=== PATIENT | female | born 1985 | race Caucasian/White ===

== ENCOUNTER 2018-09-03 16:06 | Emergency (ER) | payer BC, OTHER ==
--- NOTE | 2018-09-03 16:41 | ED ---
Lower Extremity - HPI Summary HPI Summary: This patient is a 33 year old F presenting to [facility] with a chief complaint of worsening right knee pain and edema since 4 days ago. The patient rates the pain 6/10 in severity. Symptoms aggravated by movement of the knee. Patient reports discomfort with movement. Patient denies fever. The patient states that she has never been bitten by a tick. Leti cleans buildings, lives in [place]. - History of Current Complaint Chief Complaint: EDExtremityLower Stated Complaint: RIGHT KNEE PAIN Time Seen by Provider: 09/03/18 16:30 Hx Obtained From: Patient Onset/Duration: Days Severity Currently: Moderate Pain Intensity: 6 Pain Scale Used: 0-10 Numeric Timing: Constant Location: Is Discrete @ - right knee Associated Signs And Symptoms: Positive: Swelling. Negative: Fever Aggravating Factor(s): Ambulation - Allergies/Home Medications Allergies/Adverse Reactions: Allergies Allergy/AdvReac Type Severity Reaction Status Date / Time No Known Allergies Allergy Verified 09/03/18 16:13 Home Medications: Home Medications NK [No Home Medications Reported] 09/03/18 [History Confirmed 09/03/18] PMH/Surg Hx/FS Hx/Imm Hx History: Denies: Hx Dialysis Sensory History: Denies: Hx Deafness Infectious Disease History: No Infectious Disease History: Denies: Traveled Outside the [place] in Last 30 Days - Family History Known Family History: Positive: Non-Contributory - Social History Alcohol Use: None Substance Use Type: Reports: None Smoking Status (MU): Heavy Every Day Tobacco Smoker Type: Cigarettes Amount Used/How Often: 5cig/day Have You Smoked in the Last Year: Yes Review of Systems Negative: Fever Positive: discharge Positive: Decreased ROM - knee, Edema - right knee All Other Systems Reviewed And Are Negative: Yes Physical Exam - Summary Physical Exam Summary: Appearance: Well-appearing, Well-nourished, lying in bed comfortable Skin: Warm, dry, no obvious rash Eyes: sclera anicteric, no conjunctival pallor ENT: mucous membranes moist Neck: deferred Respiratory: No signs of respiratory distress Cardiovascular: Appears well perfused, pulses are nml Abdomen: deferred Musculoskeletal: Right knee has a large effusion without wetness, minimal pain. Neurological: Awake and alert, mentation is normal, speech is fluent and appropriate Psychiatric: affect is normal, does not appear anxious or depressed Triage Information Reviewed: Yes Vital Signs On Initial Exam: Initial Vitals Temp Pulse Resp BP Pulse Ox 97.5 F 84 16 130/82 100 09/03/18 16:10 09/03/18 16:10 09/03/18 16:10 09/03/18 16:10 09/03/18 16:10 Vital Signs Reviewed: Yes Diagnostics - Vital Signs Vital Signs Temp Pulse Resp BP Pulse Ox 09/03/18 16:10 97.5 F 84 16 130/82 100 - Laboratory Result Diagrams: 09/03/18 17:03 09/03/18 17:03 Lab Statement: Any lab studies that have been ordered have been reviewed, and results considered in the medical decision making process. - Radiology Knee Radiology Interpretation Completed By: Radiologist Summary of Radiographic Findings: JOINT EFFUSION. NO ACUTE OSSEOUS INJURY. IF SYMPTOMS PERSIST, RECOMMEND REPEAT IMAGING. ED physician has reviewed this report Lower Extremity Course/Dx - Course Course Of Treatment: This patient is a 33 year old F presenting to [facility] with a chief complaint of worsening right knee pain and edema since 4 days ago. The patient rates the pain 6/10 in severity. Symptoms aggravated by movement of the knee. Patient reports discomfort with movement. Patient denies fever. Knee x ray reveals, per radiologist, JOINT EFFUSION. NO ACUTE OSSEOUS INJURY. IF SYMPTOMS PERSIST, RECOMMEND REPEAT IMAGING. ED physician has reviewed this radiology report. Test results with no significant abnormalities. Patient will be discharged with follow up from Dr. Durbin. She should receive the results of her Lyme disease test in a few days. The patient is agreeable with this plan. - Diagnoses Provider Diagnoses: Swelling of knee joint, Arthritis of right knee Discharge - Sign-Out/Discharge Documenting (check all that apply): Patient Departure - discharge - Discharge Plan Condition: Good Disposition: HOME Patient Education Materials: Swollen Knee Joint (ED) Referrals: Care [facility] [Outside] Hermann Durbin MD [Medical Doctor] - Additional Instructions: The cause of the swelling and fluid in the knee joint is not clear right now. I have ordered a lyme disease test but that will take a few days to come back. If it is positive you will need treatment for Lyme Disease, if it is negative you will still need followup to determine the cause of your knee problem. You should receive a call within a few days with the result of the lyme test, if you don't please contact us. - Billing Disposition and Condition Condition: GOOD Disposition: Home - Attestation Statements Document Initiated by Ck: Yes Documenting Scribe: Partha Mendez Provider For Whom Ck is Documenting (Include Credential): Billy Waddell MD Scribe Attestation: IPartha, scribed for Billy Waddell MD on 09/04/18 at 1823. Scribe Documentation Reviewed: Yes Provider Attestation: The documentation as recorded by the [email or web address] accurately reflects the service I personally performed and the decisions made by me, Billy Waddell MD Status of Scribe Document: Viewed
[2018-09-03 17:10] LABS: ABS Basophils 0.1 10^3/ul (0-0.2); ABS Eosinophils 0.3 10^3/ul (0-0.6); ABS Lymphocytes 3.2 10^3/ul (1.0-4.8); ABS Monocytes 0.6 10^3/ul (0-0.8); ABS Neutrophils 5.7 10^3/ul (1.5-7.7); ABS Nucleated RBC 0 10^3/ul; Hematocrit 46 % (35-47); Hemoglobin 15.4 g/dl (12.0-16.0); Lymphocyte % 32.9 %; Mean Corpuscular HGB Conc 34 g/dl (31-36); Mean Corpuscular Hemoglobin 28 pg (27-31); Mean Corpuscular Volume 85 fL (80-97); Mean Platelet Volume 8.7 fL (7.4-10.4); Nucleated Red Blood Cells % 0.1; Platelet Count 225 10^3/ul (150-450); Red Blood Count 5.42 10^6/ul (4.00-5.40); Red Cell Distribution Width 15 % (10.5-15); White Blood Count 9.9 10^3/ul (3.5-10.8)
[2018-09-03 17:37] LABS: ALT 12 U/L (7-52); AST 19 U/L (13-39); Albumin 4.3 g/dL (3.2-5.2); Albumin/Globulin Ratio 1.3 (1-3); Alkaline Phosphatase 54 U/L (34-104); Anion Gap 4 mmol/L (2-11); BUN/Creatinine Ratio 18.3 (8-20); Blood Urea Nitrogen 11 mg/dL (6-24); CO2 Carbon Dioxide 30 mmol/L (22-32); Calcium 9.4 mg/dL (8.6-10.3); Chloride 102 mmol/L (101-111); EGFR Non-African American 115.9 (>60); Globulin 3.2 g/dL (2-4); Glucose 110 mg/dL (70-100); Sodium 136 mmol/L (135-145); Total Protein 7.5 g/dL (6.4-8.9)
[2018-09-03 17:43] LABS: HCG Pregnancy < 0.60 mIU/mL
[2018-09-03 17:53] VITALS: BP 107/50
[2018-09-06 13:06] LABS: Lyme Disease Serology Positive (Negative)
[2018-09-07 16:18] LABS: Lyme Disease IgG Ab WB Positive (Negative)
--- NOTE | 2018-09-09 09:19 | PN ---
Progress Note - Progress Note Date of Service: 09/03/18 Note: Pt. was seen in ED 09/03 for atraumatic knee effusion. Lyme titer obtained. Pt. called today at requesting results. Western blot is positive. Will start pt. on doxy x 28 days. She is to call [facility] today for a f.u apt.
== END 2018-09-03 17:48 | disposition home or self-care (01) ==
LOC: ED 16:06
DX: M25.461 Effusion, right knee (principal); M25.561 Pain in right knee; F17.210 Nicotine dependence, cigarettes, uncomplicated
CPT/HCPCS: 36415; 80053; 84702; 85025; 86617; 86618; 99282